=== PATIENT | female | born 1990 | race Hispanic/Latino ===

== ENCOUNTER 2017-04-14 19:45 | Emergency (ER) | payer MEDICAID ==
[2017-04-14 19:56] VITALS: BMI 29.9
--- NOTE | 2017-04-14 19:57 | ED PDOC ---
Arrival/HPI - General Historian: Patient <Justice Epstein - Last Filed: 04/14/17 20:09> <Michael Marino - Last Filed: 04/14/17 20:41> - General Time Seen by Provider: 04/14/17 19:49 - History of Present Illness Narrative History of Present Illness (Text): 04/14/17 19:54 26 y/o female, no pmh, nkda, c/o throat pain and ear pain x 2 days with no fall or trauma. Aching pain, aggravated by swallowing, associated with the bilateral ear pain, no change in vision, no change in hearing, no night sweat, no numbness or tingling, no painful movement of the neck, no other medical or psychological complaints. (Justice Epstein) Past Medical History - Provider Review Nursing Documentation Reviewed: Yes - Psychiatric Hx Substance Use: No - Anesthesia Hx Anesthesia: No - Suicidal Assessment Feels Threatened In Home Enviroment: No <Justice Epstein - Last Filed: 04/14/17 20:09> Family/Social History - Physician Review Nursing Documentation Reviewed: Yes Family/Social History: Unknown Family HX Smoking Status: Unknown If Ever Smoked Hx Alcohol Use: No Hx Substance Use: No <Justice Epstein - Last Filed: 04/14/17 20:09> Allergies/Home Meds <Justice Epstein - Last Filed: 04/14/17 20:09> <Michael Marino - Last Filed: 04/14/17 20:41> Allergies/Adverse Reactions: Allergies No Known Allergies Allergy (Verified 04/14/17 20:06) Review of Systems - Review of Systems Constitutional: absent: Fatigue, Fevers Eyes: absent: Vision Changes ENT: Sore Throat, Other (ear pain). absent: Hearing Changes Respiratory: absent: SOB, Cough Cardiovascular: absent: Chest Pain Gastrointestinal: absent: Abdominal Pain, Diarrhea, Nausea, Vomiting Musculoskeletal: absent: Arthralgias, Back Pain, Neck Pain, Joint Swelling, Myalgias Neurological: absent: Headache, Dizziness, Focal Weakness, Gait Changes Psychiatric: absent: Anxiety, Depression, Suicidal Ideation <Justice Epstein - Last Filed: 04/14/17 20:09> Physical Exam - Systems Exam Head: Present: Atraumatic, Normocephalic Pupils: Present: PERRL Extroacular Muscles: Present: EOMI Conjunctiva: Present: Normal Ears: Present: Other (Ears: Lt. TM with mild erythematous and intact, rt. TM caprice color and intact, bilateral auditory canals non-erythematous, no mastoid tenderness, hearing grossly intact and equal. ). No: Erythema Mouth: Present: Moist Mucous Membranes Pharnyx: Present: ERYTHEMA. No: EXUDATE, TONSILS ENLARGED, Peritonsilar Swelling, Muffled/Hoarse Voice, Soft Palate/Uvular Edema Nose (External): Present: Atraumatic. No: Abrasion, Contusion, Laceration, Lesions Nose (Internal): Present: No Active Bleeding. No: Rhinorrhea, Septal Deviation , Septal Hematoma, Epistaxis Neck: Present: Normal Range of Motion, Lymphadenopathy (+lt. anterior cervical lymphenapathy), Trachea Midline. No: Meningeal Signs, MIDLINE TENDERNESS, Paraspinal Tenderness Respiratory/Chest: Present: Clear to Auscultation, Good Air Exchange. No: Respiratory Distress, Accessory Muscle Use Cardiovascular: Present: Regular Rate and Rhythm, Normal S1, S2. No: Murmurs Abdomen: Present: Normal Bowel Sounds. No: Tenderness, Distention, Peritoneal Signs Back: Present: Normal Inspection Upper Extremity: Present: Normal Inspection. No: Cyanosis, Edema Lower Extremity: Present: Normal Inspection. No: Edema Neurological: Present: GCS=15, Speech Normal, Motor Func Grossly Intact, Gait Normal, Memory Normal Skin: Present: Warm, Dry, Normal Color. No: Rashes Psychiatric: Present: Alert, Oriented x 3, Normal Insight, Normal Concentration <Justice Epstein - Last Filed: 04/14/17 20:09> Medical Decision Making <Justice Epstein - Last Filed: 04/14/17 20:09> <Michael Marino - Last Filed: 04/14/17 20:41> ED Course and Treatment: 04/14/17 20:01 -tylenol and augmentin -Pt. is non-toxic looking. -Discharge home with augmentin, tylenol, salt water gargling, soft food diet, follow up with your own pmd and ENT within 2 days, return to the ER for any new or worsening signs or symptoms. (Justice Epstein) - Medication Orders Current Medication Orders: Discontinued Medications Acetaminophen (Tylenol 325mg Tab) 650 mg PO STAT STA Stop: 04/14/17 20:09 Last Admin: 04/14/17 20:17 Dose: 650 mg Amoxicillin/Clavulanate Potassium (Augmentin 875 Mg-125 Mg Tab) 1 tab PO STAT STA PRN Reason: Protocol Stop: 04/14/17 20:09 Last Admin: 04/14/17 20:17 Dose: 1 tab - PA / ADULT PROTECTIVE CASEWORKER / Resident Statement PATO has reviewed & agrees with the documentation as recorded. <Justice Epstein - Last Filed: 04/14/17 20:09> - PA / ADULT PROTECTIVE CASEWORKER / Resident Statement PATO has reviewed & agrees with the documentation as recorded. <Michael Marino - Last Filed: 04/14/17 20:41> Disposition/Present on Arrival - Present on Arrival Any Indicators Present on Arrival: No History of DVT/PE: No History of Uncontrolled Diabetes: No Urinary Catheter: No History of Decub. Ulcer: No History Surgical Site Infection Following: None - Disposition Have Diagnosis and Disposition been Completed?: Yes Disposition Time: 20:02 Patient Plan: Discharge <Justice Epstein - Last Filed: 04/14/17 20:09> <Michael Marino - Last Filed: 04/14/17 20:41> - Disposition Diagnosis: Pharyngitis, Otitis media Disposition: HOME/ ROUTINE Condition: GOOD Additional Instructions: Discharge home with augmentin, tylenol, salt water gargling, soft food diet, follow up with your own pmd and ENT within 2 days, return to the ER for any new or worsening signs or symptoms. Prescriptions: Acetaminophen [Tylenol 325mg tab] 2 tab PO QID PRN #35 tab PRN Reason: Other Amoxicillin/Clavulanate [Augmentin 875 MG-125 MG] 1 tab PO BID #20 tab Referrals: Sebastián Pruett DO [Staff Provider] - Follow up with primary [facility] at [facility] [place] [Outside] - Follow up with primary Forms: WORK NOTE
[2017-04-14 20:06] VITALS: BP 142/83; PULSE 83; RESP 16; TEMP 98.2
[2017-04-14] MEDS ORDERED: Amoxicillin-Clav 875-125 mg Tab PO STA (20:08)
[2017-04-14 20:19] VITALS: O2SAT 99
== END 2017-04-14 20:19 | disposition home or self-care (01) ==
LOC: ED 19:45
DX: J02.9 Acute pharyngitis, unspecified (principal); H66.90 Otitis media, unspecified, unspecified ear

== ENCOUNTER 2017-05-18 10:36 | Emergency (ER) | payer MEDICAID ==
[2017-05-18 10:37] VITALS: BMI 29.9
[2017-05-18 10:57] VITALS: RESP 18; TEMP 98.1; O2SAT 99
[2017-05-18] MEDS ORDERED: Iohexol 350 MG/100 ML VIAL ONE (11:08)
--- NOTE | 2017-05-18 11:12 | ED PDOC ---
Arrival/HPI - General Chief Complaint: Abnormal Skin Integrity Time Seen by Provider: 05/18/17 11:10 Historian: Patient - History of Present Illness Narrative History of Present Illness (Text): 05/18/17 11:12 26 y/o female, no pmh, nkda, c/o itching rash to the body x 2 days with no change in soap/clothing/detergent. Itching rash, admits been going to the park , driving home today from the ER, no chest pain or shortness of breath, no night sweat, no dizziness, no other medical or psychological complaints. Past Medical History - Provider Review Nursing Documentation Reviewed: Yes - Infectious Disease Hx of Infectious Diseases: None - Cardiac Hx Cardiac Disorders: No - Pulmonary Hx Respiratory Disorders: No - Neurological Hx Neurological Disorder: No - HEENT Hx HEENT Disorder: No - Renal Hx Renal Disorder: No - Endocrine/Metabolic Hx Endocrine Disorders: No - Hematological/Oncological Hx Blood Disorders: No - Integumentary Hx Dermatological Disorder: No - Musculoskeletal/Rheumatological Hx Musculoskeletal Disorders: No - Gastrointestinal Hx Gastrointestinal Disorders: No - Genitourinary/Gynecological Hx Genitourinary Disorders: No - Psychiatric Hx Psychophysiologic Disorder: No Hx Substance Use: No - Anesthesia Hx Anesthesia: No - Suicidal Assessment Feels Threatened In Home Enviroment: No Family/Social History - Physician Review Nursing Documentation Reviewed: Yes Family/Social History: Unknown Family HX Smoking Status: Never Smoked Hx Alcohol Use: No Hx Substance Use: No Allergies/Home Meds Allergies/Adverse Reactions: Allergies No Known Allergies Allergy (Verified 05/18/17 10:54) Review of Systems - Review of Systems Constitutional: absent: Fatigue, Fevers Eyes: absent: Vision Changes ENT: absent: Hearing Changes Respiratory: absent: SOB, Cough Gastrointestinal: absent: Abdominal Pain, Nausea, Vomiting Genitourinary Female: absent: Dysuria Musculoskeletal: absent: Arthralgias, Back Pain Skin: Rash, Pruritis. absent: Skin Lesions, Laceration, Abscess, Ulcer, Cellulitis Psychiatric: absent: Anxiety, Depression, Suicidal Ideation Physical Exam Vital Signs Reviewed: Yes Vital Signs Temp Pulse Resp BP Pulse Ox 05/18/17 11:44 71 18 127/79 99 05/18/17 10:56 98.1 F 76 18 129/85 99 Temperature: Afebrile Blood Pressure: Normal Pulse: Regular Respiratory Rate: Normal Appearance: Positive for: Well-Appearing, Non-Toxic, Comfortable Pain Distress: None Mental Status: Positive for: Alert and Oriented X 3 - Systems Exam Head: Present: Atraumatic, Normocephalic Pupils: Present: PERRL Extroacular Muscles: Present: EOMI Conjunctiva: Present: Normal Mouth: Present: Moist Mucous Membranes Neck: Present: Normal Range of Motion Respiratory/Chest: Present: Clear to Auscultation, Good Air Exchange. No: Respiratory Distress, Accessory Muscle Use Cardiovascular: Present: Regular Rate and Rhythm, Normal S1, S2. No: Murmurs Abdomen: Present: Normal Bowel Sounds. No: Tenderness, Distention, Peritoneal Signs Back: Present: Normal Inspection Upper Extremity: Present: Normal Inspection. No: Cyanosis, Edema Lower Extremity: Present: Normal Inspection. No: Edema Neurological: Present: GCS=15, Speech Normal, Gait Normal, Memory Normal Skin: Present: Warm, Dry, Rashes (visible scattered blanchable hives approx. 1cm diameter noted on the posterior neck/bilateral upper/posterior back and anterior chest. The rash is with central insect bite kessler, no bullseye or target signs, no cellulitis or streaking, no ulcers. ), Normal Color Psychiatric: Present: Alert, Oriented x 3, Normal Insight, Normal Concentration Medical Decision Making ED Course and Treatment: 05/18/17 11:40 -Benadryl will be held for now. -There is central insect bite -Pt. is positive which she is awared, no abdominal or pelvic pain, no vaginal bleeding or discharge. Pt. has no urinary symptoms, refused urinalysis test which I recommend but she refused. Pt. stated that she will return to the ER for any urinary symptoms. -Discharge home with benadryl, keep the skin cool and dry, follow up with your own pmd and call center recruiter within 2 days, return to the ER for any new or worsening signs or symptoms. - Medication Orders Current Medication Orders: Discontinued Medications Iohexol (Omnipaque 350 100 Ml) Confirm Administered Dose 350 mg .ROUTE .STK-MED ONE Stop: 05/18/17 11:09 - PA / WARRANTY MANAGER / Resident Statement / has reviewed & agrees with the documentation as recorded. Disposition/Present on Arrival - Present on Arrival Any Indicators Present on Arrival: No History of DVT/PE: No History of Uncontrolled Diabetes: No Urinary Catheter: No History of Decub. Ulcer: No History Surgical Site Infection Following: None - Disposition Have Diagnosis and Disposition been Completed?: Yes Diagnosis: Insect bite Disposition: HOME/ ROUTINE Disposition Time: 11:12 Patient Plan: Discharge Patient Problems: Current Active Problems Problem Status Onset Insect bite Acute Condition: GOOD Additional Instructions: Discharge home with benadryl, keep the skin cool and dry, follow up with your own pmd and call center recruiter within 2 days, return to the ER for any new or worsening signs or symptoms. Prescriptions: DiphenhydrAMINE [Benadryl] 50 mg PO QID PRN #30 cap PRN Reason: Other Referrals: Keeley Navarrete MD [Staff Provider] - Follow up with primary Ranjith Ramirez MD [Primary Care Provider] - Follow up with primary Karolina Bach MD [Staff Provider] - Follow up with primary Forms: WORK NOTE
[2017-05-18 11:44] VITALS: BP 127/79; PULSE 71
== END 2017-05-18 12:09 | disposition home or self-care (01) ==
LOC: ED 10:36
DX: S10.96XA Insect bite of unspecified part of neck, initial encounter (principal); S20.462A Insect bite (nonvenomous) of left back wall of thorax, initial encounter; S20.461A Insect bite (nonvenomous) of right back wall of thorax, initial encounter; S20.362A Insect bite (nonvenomous) of left front wall of thorax, initial encounter; S20.361A Insect bite (nonvenomous) of right front wall of thorax, initial encounter; W57.XXXA Bitten or stung by nonvenomous insect and other nonvenomous arthropods, initial encounter; Y93.89 Activity, other specified; Y92.89 Other specified places as the place of occurrence of the external cause
CPT/HCPCS: 99283; Q9967

== ENCOUNTER 2017-11-05 01:28 | Emergency (ER) | payer MEDICAID, OTHER ==
[2017-11-05 01:29] VITALS: BMI 29.9
[2017-11-05 02:06] VITALS: O2SAT 99
--- NOTE | 2017-11-05 02:12 | ED PDOC ---
Arrival/HPI - General Chief Complaint: GI Problem Time Seen by Provider: 11/05/17 01:34 Historian: Patient - History of Present Illness Narrative History of Present Illness (Text): 11/05/17 02:12 Mildred Horta is a 27 year old female, currently 28 weeks , who presents to the Emergency department complaining of cough with associated congestion and headache for 3 weeks. Patient also reports vomiting tonight. Patient denies any fever, chills, chest pain, shortness of breath, diarrhea, urinary symptoms, vaginal bleeding/discharge, headache, dizziness, or any other complaints. Time/Duration: < month (3 weeks) Symptom Onset: Gradual Symptom Course: Unchanged Activities at Onset: Light Context: Home Past Medical History - Provider Review Nursing Documentation Reviewed: Yes - Infectious Disease Hx of Infectious Diseases: None - Reproductive Menopause: No - Cardiac Hx Cardiac Disorders: No - Pulmonary Hx Respiratory Disorders: No - Neurological Hx Neurological Disorder: No - HEENT Hx HEENT Disorder: No - Renal Hx Renal Disorder: No - Endocrine/Metabolic Hx Endocrine Disorders: No - Hematological/Oncological Hx Blood Disorders: Yes Hx Anemia: Yes (Gestational) - Integumentary Hx Dermatological Disorder: No - Musculoskeletal/Rheumatological Hx Musculoskeletal Disorders: No - Gastrointestinal Hx Gastrointestinal Disorders: No - Genitourinary/Gynecological Hx Genitourinary Disorders: No - Psychiatric Hx Psychophysiologic Disorder: No Hx Substance Use: No - Anesthesia Hx Anesthesia: No - Suicidal Assessment Feels Threatened In Home Enviroment: No Family/Social History - Physician Review Nursing Documentation Reviewed: Yes Family/Social History: Unknown Family HX Smoking Status: Never Smoked Hx Alcohol Use: No Hx Substance Use: No Allergies/Home Meds Allergies/Adverse Reactions: Allergies No Known Allergies Allergy (Verified 05/18/17 10:54) Home Medications: Home Meds Medication Instructions Recorded Confirmed No Known Home Med 11/05/17 11/05/17 Review of Systems - Physician Review All systems were reviewed & negative as marked: Yes - Review of Systems Constitutional: Normal. absent: Fevers Eyes: Normal ENT: Other (+congestion) Respiratory: Cough Cardiovascular: Normal. absent: Chest Pain Gastrointestinal: Vomiting. absent: Abdominal Pain, Diarrhea Genitourinary Female: Normal. absent: Dysuria, Frequency, Hematuria, Urine Output Changes Musculoskeletal: Normal. absent: Back Pain, Neck Pain Skin: Normal. absent: Rash Neurological: Headache. absent: Dizziness Endocrine: Normal Hemo/Lymphatic: Normal Psychiatric: Normal Physical Exam Vital Signs Reviewed: Yes Vital Signs Temp Pulse Resp BP Pulse Ox 11/05/17 04:16 98.0 F 85 17 130/82 99 11/05/17 02:03 97.7 F 83 19 145/88 99 Temperature: Afebrile Blood Pressure: Normal Pulse: Regular Respiratory Rate: Normal Appearance: Positive for: Well-Appearing, Non-Toxic, Comfortable Pain Distress: None Mental Status: Positive for: Alert and Oriented X 3 - Systems Exam Head: Present: Atraumatic, Normocephalic Pupils: Present: PERRL Extroacular Muscles: Present: EOMI Conjunctiva: Present: Normal Ears: Present: Normal, NORMAL TM, Normal Canal. No: Erythema, TM Bulging, Fluid Mouth: Present: Moist Mucous Membranes Pharnyx: Present: Normal. No: ERYTHEMA, EXUDATE, TONSILS ENLARGED, Peritonsilar Swelling, Uvular Deviation, Muffled/Hoarse Voice, Strider, Soft Palate/Uvular Edema Nose (External): Present: Atraumatic Nose (Internal): Present: Normal Inspection Neck: Present: Normal Range of Motion. No: Meningeal Signs, MIDLINE TENDERNESS , Paraspinal Tenderness Respiratory/Chest: Present: Clear to Auscultation, Good Air Exchange. No: Respiratory Distress, Accessory Muscle Use Cardiovascular: Present: Regular Rate and Rhythm, Normal S1, S2. No: Murmurs Abdomen: Present: Normal Bowel Sounds. No: Tenderness, Distention, Peritoneal Signs Back: Present: Normal Inspection Upper Extremity: Present: Normal Inspection. No: Cyanosis, Edema Lower Extremity: Present: Normal Inspection. No: Edema Neurological: Present: GCS=15, CN II-XII Intact, Speech Normal Skin: Present: Warm, Dry, Normal Color. No: Rashes Psychiatric: Present: Alert, Oriented x 3, Normal Insight, Normal Concentration Medical Decision Making ED Course and Treatment: 11/05/17 02:12 Impression: 27 year old female complaining of cough, congestion, and headache x3 weeks. Vomiting tonight. Plan: -- Rapid influenza -- Urinalysis -- IV fluids -- Reglan -- Reassess and disposition Progress Notes: 11/05/17 03:38 On re-evaluation, patient feels better and is in no acute distress. I have discussed the results and plan with the patient, who expresses understanding. Patient in agreement with plan to be discharged home. Patient is stable for discharge. Patient was instructed to follow up with physician or return if symptoms worsen or new concerning symptoms arise. Re-evaluation Time: 03:38 Reassessment Condition: Re-examined, Improved - Lab Interpretations Lab Results: Lab Results 11/05/17 02:35: Urine Color Yellow, Urine Appearance Clear, Urine pH 6.5, Ur Specific [place] 1.010, Urine Protein Negative, Urine Glucose (UA) Negative, Urine Ketones Negative, Urine Blood Negative, Urine Nitrate Negative, Urine Bilirubin Negative, Urine Urobilinogen 0.2, Ur Leukocyte Esterase Negative 11/05/17 02:35: Influenza Typ A,B (EIA) Negative for flu a/b I have reviewed the lab results: Yes - Medication Orders Current Medication Orders: Discontinued Medications Guaifenesin (Robitussin) 100 mg PO STAT STA Stop: 11/05/17 02:44 Last Admin: 11/05/17 03:15 Dose: 100 mg Sodium Chloride (Sodium Chloride 0.9%) 1,000 mls @ 1,000 mls/hr IV .Q1H DRAKE Last Admin: 11/05/17 02:45 Dose: 1,000 mls/hr eMAR Start Stop Document 11/05/17 02:45 RD (Rec: 11/05/17 02:46 RD [id number]) Intravenous Solution Start Date 11/05/17 Start Time 02:45 End Date 11/05/17 End time 03:45 Total Infusion Time 60 Metoclopramide HCl (Reglan) 10 mg IVP ONCE ONE Stop: 11/05/17 02:13 Last Admin: 11/05/17 02:40 Dose: 10 mg IVP Administration Document 11/05/17 02:40 RD (Rec: 11/05/17 02:45 RD [id number]) Charges for Administration # of IVP Administrations 1 - Scribe Statement The provider has reviewed the documentation as recorded by the Mack Castellano Provider Scribe Attestation: All medical record entries made by the Scribe were at my direction and personally dictated by me. I have reviewed the chart and agree that the record accurately reflects my personal performance of the history, physical exam, medical decision making, and the department course for this patient. I have also personally directed, reviewed, and agree with the discharge instructions and disposition. Disposition/Present on Arrival - Present on Arrival Any Indicators Present on Arrival: No History of DVT/PE: No History of Uncontrolled Diabetes: No Urinary Catheter: No History of Decub. Ulcer: No History Surgical Site Infection Following: None - Disposition Have Diagnosis and Disposition been Completed?: Yes Diagnosis: Headache, Viral syndrome Disposition: HOME/ ROUTINE Disposition Time: 03:39 Condition: GOOD Discharge Instructions (ExitCare): Acute Headache (ED), Viral Syndrome (ED) Forms: [employer] (Urdu)
[2017-11-05] MEDS ORDERED: Sodium Chloride 0.9% 1,000 ML IV SCH (02:15)
[2017-11-05] MEDS ORDERED: guaiFENesin 100 mg/5 ml Syrup UD PO STA (02:43)
[2017-11-05 02:55] LABS: PH,URINE 6.5 (4.7-8.0); URINE BILIRUBIN NEGATIVE (NEGATIVE); URINE BLOOD NEGATIVE (NEGATIVE); URINE GLUCOSE (UA) NEGATIVE (NEGATIVE); URINE KETONE NEGATIVE (NEGATIVE); URINE LEUKOCYTE ESTERASE NEGATIVE Leu/uL (NEGATIVE); URINE PROTEIN NEGATIVE mg/dL (<30 mg/dL); URINE UROBILINOGEN 0.2 E.U./dL (<1 E.U./dL)
[2017-11-05 03:00] LABS: URINE APPEARANCE CLEAR (CLEAR); URINE COLOR YELLOW (YELLOW)
[2017-11-05 04:17] VITALS: BP 130/82; PULSE 85; RESP 17; TEMP 98
== END 2017-11-05 03:50 | disposition home or self-care (01) ==
LOC: ED 01:28
DX: O26.893 Other specified pregnancy related conditions, third trimester (principal); B34.9 Viral infection, unspecified; R51 Headache; Z3A.28 28 weeks gestation of pregnancy
CPT/HCPCS: 81003; 87804; 96361; 96374; 99283; J2765; J7040